=== PATIENT | female | born 1990 | race Caucasian/White ===

== ENCOUNTER 2017-01-17 11:30 | Inpatient (IN) | payer OTHER ==
[~2017-01-17] VITALS: Ht 167.6 cm; Wt 95.3 kg
--- NOTE | ~2017-01-17 | HP ---
ADMIT: 01/17/2017 RM/LOC: 226 [facility] MR#: [id number] [address] KAYLAN KEATING [address] [place] [address] History and Physical SEX: F AGE: 26 : 1990 DATE OF SERVICE: CHIEF COMPLAINT: Uterine contractions. HISTORY OF PRESENT ILLNESS: This is a 26-year-old female, 2, para 1, who presents [facility] with an intrauterine at 39-5/7th weeks' gestation with complaints of uterine contractions increasing in frequency and intensity. Her estimated date of confinement is 01/19/2017 that is based off last menstrual period and consistent with a 7-week ultrasound. Her has been complicated by obesity and history of a third-degree laceration. She has been counseled on the option for primary section and has declined this. At the time of initial evaluation, she was noted to be andre every 3-4 minutes and is 9 cm dilated and therefore admitted for labor. LABORATORY DATA: Blood type is A negative. Antibody screen negative. Hepatitis B surface antigen negative. RPR nonreactive. Rubella immune. HIV negative. Gonorrhea chlamydia is negative. Quad screen was normal. Diabetic screen 112. Group B strep is negative. PAST MEDICAL HISTORY: She denies hypertension, diabetes, asthma, kidney or thyroid disease. PAST SURGICAL HISTORY: Tonsillectomy. SOCIAL HISTORY: She is . She denies tobacco, alcohol, or drug use. ALLERGIES: PENICILLIN. CURRENT MEDICATIONS: vitamins. PHYSICAL EXAMINATION: VITAL SIGNS: Temperature is 97.4, blood pressure 147/67, pulse is 73, respirations 18. GENERAL: This is a pleasant female, in no acute distress. HEENT: Head is normocephalic, atraumatic. Pupils are equal, round, reactive to light and accommodation. Extraocular muscles are intact. NECK: Supple. HEART: Regular rate and rhythm. LUNGS: Clear bilaterally. ABDOMEN: Soft, nontender, nondistended, and gravid. EXTREMITIES: Nontender. heart tones are 120s, baseline, moderate variability is present, 15 x 15 ADMIT: 01/17/2017 RM/LOC: 226 [facility] MR#: [id number] [address] [place] [address] [place] [id number] History and Physical SEX: F AGE: 26 : 1990 accelerations are present. Decelerations are absent. Uterine contractions every 2 to 3 minutes. Her cervix is 9 cm, 100% effaced, -1 to 0 station. Fetus is vertex. IMPRESSION: 1. This is a 26-year-old female, 2, para 1, with an intrauterine at 39-5/7th weeks' gestation, in active labor. 2. Group B streptococcus negative. PLAN: At this time, we do plan to admit the patient for labor. We will treat her pain as she desires, augment if needed, and anticipate a spontaneous vaginal delivery. Alice Jones MD/ mc JOB #: [id number] CC: Alice Jones, Attending Physician Hoang Keene, Family Physician
--- NOTE | ~2017-01-17 | FD ---
ADMIT: 01/17/2017 RM/LOC: 226 [facility] MR#: [id number] [address] [address] KAYLAN KEATING [address] [place] [id number] Final Diagnosis SEX: F AGE: 26 : 1990 ADMISSION DATE: 01/17/2017 DISCHARGE DATE: 01/18/2017 FINAL DIAGNOSIS: Status post spontaneous vaginal delivery at term. PROCEDURE: 01/17/2017 spontaneous vaginal delivery with delivery of viable female, 8 pounds 1 ounce, Apgars 8 and 9. Alice Jones MD/ stoney JOB #: [id number] CC: Alice Jones MD, Attending Physician Hoang Keene MD, Family Physician
[2017-01-19] MEDS ORDERED: NIPPLECREAM TP (11:25)
[2017-01-19] MEDS ORDERED: MOTRIN-DPS800 MG PO (11:25)
[2017-01-19] MEDS ORDERED: PRENATAL VIT1 TAB PO (11:25)
--- NOTE | 2017-02-10 22:22 | OR ---
ADMIT: 01/17/2017 RM/LOC: 226 [facility] MR#: [id number] [address] KAYLAN KEATING [address] [place] [address] Operative/Delivery Room Report SEX: F AGE: 26 : 1990 SURGERY DATE: 01/17/2017 SURGEON: Alice Jones MD PREOPERATIVE DIAGNOSES: 1. Intrauterine at 39-5/7th weeks' gestation. 2. Active labor. 3. Group B Streptococcus negative. POSTOPERATIVE DIAGNOSES: 1. Intrauterine at 39-5/7th weeks' gestation. 2. Active labor. 3. Group B Streptococcus negative. 4. Delivery of a viable female infant at 1332 hours, weighing 8 pounds 1 ounce with scores of 8 at 1 minute and 9 at 5 minutes. PROCEDURE: Spontaneous vaginal delivery with repair of second-degree midline laceration. ANESTHESIA: Lidocaine 1%. COMPLICATIONS: None. ESTIMATED BLOOD LOSS: 250 mL. FLUIDS: Crystalloid. INDICATIONS: This is a 26-year-old female, 2, para 1, who presents to the [facility]thing Center with an intrauterine at 39-5/7th weeks' gestation in active labor. Her was complicated by obesity and history of a partial third degree laceration. She was counseled on a primary section, did decline this and requested trial of labor. She progressed to be complete in a satisfactory fashion at which time, she was allowed to push, bringing the 's vertex to the perineum. DESCRIPTION OF PROCEDURE: The patient was noted to be complete. She was placed in the dorsal lithotomy position and prepped and draped in usual sterile fashion. She was asked to push and delivered the 's vertex in left occiput anterior position over the midline. Nuchal cord was checked, ADMIT: 01/17/2017 RM/LOC: 226 [facility] MR#: [id number] [address] [place]LAN KEATING [address] [place] [address] Operative/Delivery Room Report SEX: F AGE: 26 : 1990 none was noted. The anterior shoulder and posterior shoulder and remainder of the infant quickly delivered. The infant was passed to the mother's abdomen where nursing personnel were in attendance. She did have spontaneous cry and movement of all four extremities. After 1 minute, the cord was clamped x2 and cut by the father. Cord blood was obtained. Twenty units of Pitocin were infused with IV fluids to help firm the uterus. The placenta delivered intact spontaneously. The uterus was not explored. Examination of the cervix and vaginal vault did not reveal any lacerations. Examination of the perineum revealed a second-degree midline laceration, this was repaired using 3-0 Vicryl in the usual fashion. The patient tolerated the procedure well. Sponge, needle, and instrument counts were correct. She did recover in her Labor and Delivery suite with her infant. Alice Jones MD/ mc JOB #: [id number] CC: Alice Jones, Attending Physician Hoang Keene, Family Physician
== END 2017-01-18 16:30 | disposition home or self-care (01) | DRG 775 ==
LOC: 2LDRP 11:30 → BC 11:30 → 2LDRP 11:55 → BC 01-19 08:00
PROVIDERS: ADMIT Obstetrics & Gynecology
PROC: 3E0234Z Introduction of Serum, Toxoid and Vaccine into Muscle, Percutaneous Approach (ICD-10-PCS; principal; 2017-01-17)
PROC: 10907ZC Drainage of Amniotic Fluid, Therapeutic from Products of Conception, Via Natural or Artificial Opening (ICD-10-PCS; principal; 2017-01-17)
PROC: 10E0XZZ Delivery of Products of Conception, External Approach (ICD-10-PCS; principal; 2017-01-17)
PROC: 0KQM0ZZ Repair Perineum Muscle, Open Approach (ICD-10-PCS; principal; 2017-01-17)
DX: O99.214 Obesity complicating childbirth (principal); E66.9 Obesity, unspecified; O75.89 Other specified complications of labor and delivery; O70.1 Second degree perineal laceration during delivery; Z3A.39 39 weeks gestation of pregnancy; Z37.0 Single live birth; Z88.0 Allergy status to penicillin